=== PATIENT | male | born 1980 | race Two or more races ===

== ENCOUNTER 2017-12-06 16:36 | Emergency (ER) | payer SELFPAY ==
[2017-12-06] MEDS ORDERED: NORMAL SALINE 1000 ML 1,000 ML IV ONE (17:17)
--- NOTE | 2017-12-06 17:21 | ER Document Report ---
ED General - General Chief Complaint: Leg Pain Stated Complaint: RIGHT LEG PAIN Time Seen by Provider: 12/06/17 17:11 Mode of Arrival: Medic Information source: Patient - HPI Notes: 37-year-old previously healthy male presents with generalized cramping more so in the right lower extremity than the left. He is completing a 3 day [employer] tournament and has been playing very hard, sweating a lot. Started developing severe cramping got in a hot tub was sweating and felt like the cramping got worse. It is made it really difficult to walk. He received already normal saline 500 mL's and 1 L of lactated Ringer's and feels much better. He did have a little cramping in his abdomen which has seemed to improve. He has not urinated but has the sensation he can go now. Denies any chest pain or breathing difficulty. Denies fever. Denies recent illness. - Related Data Allergies/Adverse Reactions: No Known Allergies Allergy (Verified 12/06/17 17:03) Past Medical History - Social History Smoking Status: Current Every Day Smoker Frequency of alcohol use: None Drug Abuse: None Family History: DM Patient has suicidal ideation: No Patient has homicidal ideation: No Renal/ Medical History: Denies: Hx Peritoneal Dialysis Review of Systems - Review of Systems -: Yes All other systems reviewed and negative Physical Exam - Vital signs Vitals: Temp Pulse Resp BP Pulse Ox 98.1 F 101 H 22 H 152/88 H 98 12/06/17 16:49 12/06/17 16:49 12/06/17 16:49 12/06/17 16:49 12/06/17 16:49 Interpretation: Hypertensive - Notes Notes: GENERAL: VS as per nursing doc. Well-appearing, well-nourished and in no acute distress. HEAD: Atraumatic, normocephalic. EYES: Pupils equal round and reactive to light, extraocular movements intact, sclera anicteric, no conjunctival injection or discharge. ENT: Nares patent, oropharynx clear without exudates, moist mucous membranes. NECK: Normal range of motion, supple without lymphadenopathy. LUNGS: Breath sounds clear to auscultation bilaterally and equal. No wheezes rales or rhonchi. HEART: Regular rate and rhythm without murmurs. ABDOMEN: Soft, non-tender. BACK: No CVA tenderness. EXTREMITIES: Normal range of motion, large muscles are generally tender to palpation but there is no spasm or excessive firmness noted. Neurovascularly intact distally. No contractures noted at this point. NEUROLOGICAL: Cranial nerves grossly intact. Normal speech. Normal sensory and motor exams. No gross cerebellar abnormalities. PSYCH: Normal mood, normal affect. SKIN: Warm, dry, normal turgor, no lesions noted. Course - Re-evaluation Re-evalutation: 12/06/17 18:06 Patient has responded well to fluids and is having no further cramping, walking without difficulty. Discussed with him the laboratory abnormalities, elevated CPK. He understands he needs to be completely asymptomatic and stay hydrated and ideally he should get these labs rechecked to make sure he is recovered completely before significant strenuous activity. He voices understanding of this. - Vital Signs Vital signs: Temp Pulse Resp BP Pulse Ox 98.1 F 101 H 22 H 152/88 H 98 12/06/17 16:49 12/06/17 16:49 12/06/17 16:49 12/06/17 16:49 12/06/17 16:49 - Laboratory Result Diagrams: 12/06/17 16:50 Laboratory results interpreted by me: 12/06/17 12/06/17 16:50 17:18 Potassium 3.5 L Carbon Dioxide 19 L Creatine Kinase 1028 H Urine Protein 30 H Urine Blood SMALL H Urine Ascorbic Acid 40 H Discharge - Discharge Clinical Impression: Muscle cramps, Dehydration Condition: Good Disposition: HOME, SELF-CARE Additional Instructions: Please return for worsening or concern. Make sure all symptoms have completely resolved before further strenuous activity, ideally you have a recheck as discussed first. At this time, we will discharge the patient with return precautions and follow-up recommendations discussed and understood. Verbal discharge instructions given at the bedside and opportunity for questions given and answered. Patient is in agreement with this plan and has verbalized understanding of return precautions and the need for primary care follow-up in the next 24-72 hours. Forms: Elevated Blood Pressure
[2017-12-06 17:38] LABS: ANION GAP 17 (5-19); BLOOD UREA NITROGEN 13 mg/dL (7-20); CALCIUM 10.2 mg/dL (8.4-10.2); CARBON DIOXIDE 19 mmol/L (22-30); CHLORIDE 106 mmol/L (98-107); CREATINE KINASE 1028 U/L (55-170); GLUCOSE 95 mg/dL (75-110); POTASSIUM 3.5 mmol/L (3.6-5.0); SODIUM 142.1 mmol/L (137-145)
[2017-12-06 17:40] LABS: APPEARANCE,URINE SLIGHTLY-CLOUDY; BILIRUBIN,URINE NEGATIVE (NEGATIVE); COLOR,URINE YELLOW; GLUCOSE, URINE NEGATIVE (NEGATIVE); KETONES,URINE NEGATIVE (NEGATIVE); LEUKOCYTE ESTERASE,URINE NEGATIVE (NEGATIVE); NITRITE,URINE NEGATIVE (NEGATIVE); PROTEIN,URINE 30 mg/dL (NEGATIVE); URINE SPECIFIC GRAVITY 1.018; UROBILINOGEN,URINE NEGATIVE mg/dL (<2.0)
[2017-12-06 18:24] VITALS: BP 137/81
== END 2017-12-06 18:24 | disposition home or self-care (01) ==
LOC: ER 16:36
DX: R25.2 Cramp and spasm (principal); E86.0 Dehydration; M79.604 Pain in right leg; F17.200 Nicotine dependence, unspecified, uncomplicated
CPT/HCPCS: 99283; 96360; 36415; 82550; 80048; 81001; J7030